=== PATIENT | female | born 1980 | race Hispanic/Latino ===

== ENCOUNTER 2019-03-17 09:35 | Emergency (ER) | payer OTHER, MEDICAID, SELFPAY ==
[2019-03-17 09:35] VITALS: BP 134/75; PULSE 81; RESP 18; TEMP 35.9; O2SAT 98; BMI 20.5
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
[2019-03-17 09:49] VITALS: BP 134/75; PULSE 81; RESP 18; O2SAT 98
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
[2019-03-17 10:02] VITALS: BP 139/89; PULSE 72; RESP 19; O2SAT 99
[2019-03-17] MEDS: ONDANSETRON 4 MG ODT SL (10:05)
[2019-03-17] MEDS: ACETAMINOPHEN 325 MG TABLET 650 MG PO (10:05)
[2019-03-17 11:02] VITALS: BP 116/70; PULSE 60; RESP 16; O2SAT 98
== END 2019-03-17 11:16 | disposition home or self-care (01) ==
PROVIDERS: Emergency Provider Emergency Medicine
DX: S16.1XXA Strain of muscle, fascia and tendon at neck level, initial encounter (principal); V43.52XA Car driver injured in collision with other type car in traffic accident, initial encounter
CPT/HCPCS: 70450; 72125; 99283; 99284